=== PATIENT | male | born 1950 | race Hispanic/Latino ===

== ENCOUNTER 2022-12-09 11:10 | Emergency (ER) | payer OTHER ==
[2022-12-09] MEDS ORDERED: NA CHLORIDE 0.9% 1,000 ML ONE ×2 (11:29→13:30)
[2022-12-09 11:36] LABS: Absolute Lymphocytes (CBC) 0.5 K/uL (0.7-4.9); Hematocrit 44.7 % (39.6-49.0); Lymphocytes % 2.1 % (15.3-44.8); MPV 9.1 fL (7.6-11.3); RBC Red Blood Cell Count 4.56 M/uL (4.33-5.43)
[2022-12-09 11:54] LABS: Albumin 2.7 g/dL (3.4-5.0); Protein, Total 7.3 g/dL (6.4-8.2)
[2022-12-09 11:55] LABS: Blood Morphology Comment NOT SEEN (NOT SEEN); Platelet Estimate ADEQ; White Blood Cell Scan OK (OK)
[2022-12-09] MEDS ORDERED: NA CHLORIDE 0.9% 100 ML ONE (12:14)
[2022-12-09] MEDS ORDERED: PIPERACIL/TAZO 3.375 GM VIAL IV ONE (12:14)
[2022-12-09 12:28] LABS: Protime INR 1.13
--- NOTE | 2022-12-09 12:38 | RAD REPORT ---
EXAM DESCRIPTION: CT - Abdomen Pelvis Wo Contrast - 12/09/2022 12:14 pm CLINICAL HISTORY: Abdominal pain. ABD PAIN COMPARISON: Abdomen Pelvis W Contrast dated 12/21/2015 TECHNIQUE: CT imaging of the abdomen and pelvis was performed without contrast. Solid organ, bowel a nd vascular assessment is limited due to lack of IV and oral contrast. All CT scans are performed using dose optimization technique as appropriate and may include automated exposure control or mA/KV adjustment according to patient size. FINDINGS: Mild motion artifact noted.Mild nodular and linear opacities in both lung bases. The liver, spleen, adrenal glands and kidneys are within normal limits for a limited non-contrast exa mination.Cholelithiasis. Subtle inflammation seen surrounding the tail the pancreas could indicate pa ncreatitis. No bowel obstruction, free air, free fluid or abscess. Moderate stool is present throughout the colon . Nonvisualized appendix. Aortoiliac atherosclerosis. Advanced lumbar degenerative changes. IMPRESSION: Prominent cholelithiasis. Subtle inflammation in the fat surrounding the pancreatic tail could indicate pancreatitis. Suggest c orrelation with amylase/lipase levels. Moderate stool is retained throughout the colon. A limited non-contrast examination was performed as detailed.
--- NOTE | 2022-12-09 12:45 | RAD REPORT ---
EXAM DESCRIPTION: US - Liver Only - 12/09/2022 12:30 pm CLINICAL HISTORY: Bilirubinemia COMPARISON: Abdomen Pelvis Wo Contrast dated 12/09/2022; Cholangiogram dated 12/21/2015 TECHNIQUE: Sonographic grayscale and color flow images of the upper abdomen were obtained. FINDINGS: Liver demonstrates homogeneous echotexture and normal echogenicity. Rounded solid appearin g central right liver lobe 1.1 centimeter nodule. There may be regional areas of focal fatty infiltra tion. Hepatopetal flow appreciated in the main portal vein. The liver demonstrates no findings of intrahepatic biliary dilatation. Spleen is normal in size, measuring 9.4 centimeter in long axis. Small dependent echogenic calculi near the neck of the gallbladder. Mildly prominent gallbladder wall , measuring 4 millimeter in thickness. No reported sonographic Simental's sign. The common bile duct is prominent, measuring 1 centimeter in caliber. No evidence of a common duct st one. IMPRESSION: A rounded solid 1.1 centimeter central right liver lobe nodule, not well characterized. This would be best evaluated on dedicated liver mass protocol MRI, which can be performed on an elect medardo basis. Cholelithiasis and prominent common bile duct. Prominent wall of the gallbladder measuring 4 millimet er in thickness. Please correlate clinically for evidence of cholecystitis.
--- NOTE | 2022-12-09 13:08 | EDPHYS ---
Physician Documentation [facility] Name: Stevie Welch Age: 72 yrs Sex: Male : 1950 Arrival Date: 12/09/2022 Time: 11:10 Bed 5 Private MD: ED Physician Enoc Marroquin HPI: 12/09 13:38 This 72 yrs old Male presents to ER via EMS with complaints of Decreased ms3 Appetite. 13:38 72-year-old male with past medical history of CVA, hyperlipidemia, hypertension ms3 presents via report EMS for decreased appetite. Patient endorses daily alcohol use. Patient is unaware how long he has been jaundiced per EMS. Patient denies pain at this time. Patient denies chest pain, shortness of breath, nausea, vomiting. Patient's complaint is he does not feel like eating.. Historical: - Allergies: 11:14 No Known Allergies; ap3 - PMHx: 11:14 CVA; Hyperlipidemia; Hypertension; ap3 - Social history:: Smoking status: unknown Patient uses alcohol. ROS: 13:38 Constitutional: Negative for fever, and chills. Neck: Negative for injury, pain, and ms3 swelling, Cardiovascular: Negative for chest pain, and palpitations. Respiratory: Negative for shortness of breath, cough, wheezing, and pleuritic chest pain. 13:38 Abdomen/GI: Positive for Decreased appetite. 13:38 Skin: Positive for jaundice. 13:38 All other systems are negative. Exam: 13:38 Constitutional: This is a well developed, well nourished patient who is awake, alert, ms3 and in no acute distress. Head/Face: Normocephalic, atraumatic. Chest/axilla: Normal chest wall appearance and motion. Nontender with no deformity. Cardiovascular: Regular rate and rhythm with a normal S1 and S2. No gallops, murmurs, or rubs. Normal PMI, no JVD. No pulse deficits. Respiratory: Lungs have equal breath sounds bilaterally, clear to auscultation and percussion. No rales, rhonchi or wheezes noted. No increased work of breathing, no retractions or nasal flaring. 13:38 Abdomen/GI: Inspection: abdomen appears normal, Bowel sounds: normal, Palpation: moderate abdominal tenderness, in the right upper quadrant. 13:38 Skin: Appearance: Jaundice. 13:43 ECG was reviewed by the Attending Physician. ms3 Vital Signs: 11:12 BP 81 / 62; Pulse 119; Resp 19; Temp 97.7; Pulse Ox 96% on R/A; Weight 71.21 kg; ap3 11:30 BP 89 / 61; Pulse 108; Resp 21 S; Pulse Ox 98% on R/A; kc6 11:33 BP 93 / 59; Pulse 108; Resp 20 S; Pulse Ox 98% on R/A; kc6 11:52 BP 97 / 59; Pulse 107; Resp 20 S; Pulse Ox 99% on R/A; aa5 12:25 BP 96 / 64; Pulse 105; Resp 16 S; Pulse Ox 99% on R/A; aa5 12:33 BP 100 / 69; Pulse 108; Resp 18 S; Pulse Ox 99% on R/A; aa5 12:45 BP 102 / 69; Pulse 108; Resp 18 S; Pulse Ox 99% on R/A; aa5 13:00 BP 100 / 66; Pulse 106; Resp 18 S; Pulse Ox 99% on R/A; aa5 13:15 BP 106 / 68; Pulse 104; Resp 18 S; Temp 98(TE); Pulse Ox 99% on R/A; aa5 13:30 BP 111 / 75; Pulse 104; Resp 16 S; Pulse Ox 99% on R/A; aa5 13:45 BP 104 / 70; Pulse 105; Resp 18 S; Temp 97.5(TE); Pulse Ox 98% on R/A; aa5 14:00 BP 104 / 70; Pulse 105; Resp 16 S; Pulse Ox 100% on R/A; aa5 14:30 BP 109 / 74; Pulse 103; Resp 18 S; Pulse Ox 99% on R/A; aa5 MDM: 11:13 Patient medically screened. snw 13:37 ED course: Patient meets septic shock criteria at this time. A. Cholelithiasis B. ms3 Tachcyardia, WBC >12. C. SBP <90 x2. Lactic acid drawn, blood cultures completed, Zosyn ordered. 30 ml/kg IVF ordered. . ED course: Sepsis re-evaluation complete. 13:38 Differential Diagnosis Cholelithiasis versus dehydration versus acute kidney injury. ms3 Data reviewed: vital signs, nurses notes, lab test result(s), EKG, radiologic studies, and as a result, I will Transfer. Consideration of Admission/Observation Patient transferred. Management of patient was discussed with the following: Programming Engineer: Dr Wilhelm at [facility]. Will need IR for drain. I considered the following discharge prescriptions or medication management in the emergency department Medications were administered in the Emergency Department. See MAR. Independent interpretation of the following test(s) in the Emergency Department EKG: See my EKG interpretation above civil manager: rate is 105 beats/min, Rhythm is sinus tachycardia, with no ectopy, Interpretation: tachycardia. Historians other than the Patient: EMS: [place]. Counseling: I had a detailed discussion with the patient and/or guardian regarding: the historical points, exam findings, and any diagnostic results supporting the discharge/admit diagnosis, lab results, radiology results, the need to transfer to another facility. Response to treatment: the patient's symptoms have mildly improved after treatment, and as a result, I will transfer patient. 13:50 Management of patient was discussed with the following: Discussed case with Dr Hercules at [address] ICU and he accepts patient.. 14:30 ED course: Discussed necessity of transfer with patient's daughter, Yoli. . pr12/09 11:14 Order name: CBC with Diff; Complete Time: 12:[address] [facility] 12/09 11:14 Order name: CMP; Complete Time: 12:[address] [facility] 12/09 11:14 Order name: Lipase; Complete Time: 12:[address] [facility] 12/09 11:39 Order name: CBC Smear Scan; Complete Time: 12:00 EDMO 12/09 12:00 Order name: Blood Culture Adult (2) pr12/09 12:00 Order name: Lactate w/ 2H reflex if indic.; Complete Time: 13:[address] [facility] 12/09 12:00 Order name: Protime (+inr); Complete Time: 12:[address] [facility] 12/09 12:00 Order name: Ptt, Activated; Complete Time: 12:[address] [facility] 12/09 11:59 Order name: Abdomen ; Complete Time: 12:49 EDMO 12/09 12:01 Order name: US Liver Only; Complete Time: 12:[address] [facility] 12/09 12:00 Order name: EKG; Complete Time: 12:[address] [facility] 12/09 11:14 Order name: IV Saline Lock; Complete Time: 11:29 ms3 12/09 11:14 Order name: Labs collected and sent; Complete Time: 11:29 ms3 12/09 12:00 Order name: Cardiac monitoring; Complete Time: 12:03 ms3 12/09 12:00 Order name: EKG - Nurse/Tech; Complete Time: 13:13 ms3 12/09 12:00 Order name: IV Saline Lock - Large Bore; Complete Time: 12:03 ms3 12/09 12:00 Order name: O2 Per Protocol; Complete Time: 12:03 ms3 12/09 12:00 Order name: O2 Sat Monitoring; Complete Time: 12:03 ms3 12/09 12:00 Order name: Vital Signs; Complete Time: 12:02 ms3 EC:43 Rate is 104 beats/min. Rhythm is regular. Left axis deviation noted. IA interval is ms3 normal. Clinical impression: Abnormal EKG without significant change. Interpreted by me. Reviewed by me. Administered Medications: 11:29 Drug: NS 0.9% IV 1000 ml Route: IV; Rate: 1 bolus; Site: right antecubital; kc6 12:30 Follow up: IV Status: Completed infusion; IV Intake: 1000ml aa5 13:24 Drug: NS 0.9% IV 1500 ml Route: IV; Rate: bolus; Site: right forearm; ap3 14:00 Follow up: IV Status: Completed infusion; IV Intake: 500ml aa5 13:39 Drug: Piperacillin-Tazobactam IVPB 3.375 grams Route: IVPB; Infused Over: 60 mins; aa5 Site: right antecubital; 13:57 Follow up: Response: No adverse reaction aa5 14:35 Follow up: Response: No adverse reaction; IV Status: Completed infusion aa5 Disposition Summary: 12/09/22 13:07 Transfer Ordered Transfer Location: [facility] ms3 Reason: Higher level of care ms3 Condition: Stable ms3 Problem: new ms3 Symptoms: are unchanged ms3 Accepting Physician: (12/09/22 14:55) aa5 Diagnosis - Acute cholecystitis ms3 - Choledocholithiasis ms3 Forms: - Medication Reconciliation Form ms3 - SBAR form ms3 Critical care time excluding procedures: 13:42 Critical care time: Bedside Care: 40 minutes, Consultation: 10 minutes. Total time: 50 ms3 minutes Signatures: Dispatcher [employer] EDMS Ashley Luis, HAND FRAME SURGICAL ELASTIC KNITTER-C HAND FRAME SURGICAL ELASTIC KNITTER-Csnw Nathalia Munroe, RN RN aa5 Jeanne Toledo RN RN ap3 Enoc Marroquin DO DO ms3 Olga James, RN RN kc6 Corrections: (The following items were deleted from the chart) 11:59 11:15 Abdomen Pelvis W Con+CT.RAD.BRZ ordered. EDMS EDMS 12:02 12:00 Accucheck ordered. ms3 aa5 14:55 13:07 ms3 aa5
--- NOTE | 2022-12-09 13:08 | ER ---
Nurse's Notes [facility] Name: Stevie Welch Age: 72 yrs Sex: Male : 1950 Arrival Date: 12/09/2022 Time: 11:10 Bed 5 Private MD: Diagnosis: Acute cholecystitis;Choledocholithiasis Presentation: 12/09 11:12 Chief complaint: EMS states: they were called by the home health roofing sales representative for a ap3 patient who was hypotensive, reporting he hasn't eaten in 2 days, hasn't had water but had ETOH yesterday. patient reports having dark urine. Coronavirus screen: At this time, the client does not indicate any symptoms associated with coronavirus-19. Ebola Screen: No symptoms or risks identified at this time. Initial Sepsis Screen: Does the patient meet any 2 criteria? Systolic BP < 90 mmHg. HR > 90 bpm. Does the patient have a suspected source of infection? No. Patient's initial sepsis screen is negative. Risk Assessment: Do you want to hurt yourself or someone else? Patient reports no desire to harm self or others. Onset of symptoms is unknown. 11:12 Method Of Arrival: EMS: [facility] ap3 11:12 Acuity: LENORA 2 ap3 Triage Assessment: 11:14 General: Appears jaundiced . Behavior is calm, cooperative. General: patient reports ap3 being thirsty. Pain: Denies pain. Neuro: Level of Consciousness is awake, alert, obeys commands, Oriented to person, place, time, situation. Cardiovascular: Patient's skin is warm and dry. Respiratory: Airway is patent Respiratory effort is even, unlabored, Respiratory pattern is regular, symmetrical. Derm: Skin is jaundiced. Historical: - Allergies: 11:14 No Known Allergies; ap3 - PMHx: 11:14 CVA; Hyperlipidemia; Hypertension; ap3 - Social history:: Smoking status: unknown Patient uses alcohol. Screenin:16 Abuse screen: Denies threats or abuse. Nutritional screening: jaundiced, reports not ap3 eating for 2 days. Tuberculosis screening: No symptoms or risk factors identified. Assessment: 11:15 General: Appears uncomfortable, Behavior is calm, cooperative. Pain: Denies pain. aa5 Neuro: Level of Consciousness is awake, alert, obeys commands, Oriented to person, place, time, situation, Incoming Freight Clerk are weak bilaterally Moves all extremities. Speech is normal, Facial symmetry appears normal, Reports generalized weakness . Cardiovascular: Heart tones S1 S2 present Rhythm is sinus tachycardia. Respiratory: Airway is patent Respiratory effort is even, unlabored, Respiratory pattern is regular, symmetrical, Breath sounds are clear bilaterally. GI: Abdomen is round Bowel sounds present X 4 quads. Patient currently denies diarrhea, nausea, vomiting. : No signs and/or symptoms were reported regarding the genitourinary system. EENT: Sclera/Cornea jaundiced . Derm: Skin is dry, Skin is jaundiced, Skin temperature is warm. Musculoskeletal: Range of motion: intact in all extremities. 11:39 Reassessment: pts blood pressure is 89/61. pt denies feeling lightheaded or dizzy at kc6 this time. pt placed in Trendelenburg. bp reassessed, 93/59. Dr. Hubbard notified. 12:03 Reassessment: Pt to CT via stretcher . aa5 12:30 Reassessment: Pt back from radiology. aa5 12:30 Neuro: Level of Consciousness is awake, alert, obeys commands, Oriented to person, aa5 place, time, situation. Respiratory: Airway is patent Respiratory effort is even, unlabored, Respiratory pattern is regular, symmetrical. Derm: Skin is dry, Skin is jaundiced, Skin temperature is warm. 12:45 Reassessment: Latanya Welch (pt's daughter) [phone]. aa5 12:50 Reassessment: unable to collect 2nd set of blood cultures, phlebotomy notified. . aa5 13:10 Reassessment: Lab at bedside collecting 2nd set of blood cultures. . aa5 13:10 Neuro: Level of Consciousness is awake, alert, obeys commands, Oriented to person, aa5 place, time, situation. Respiratory: Airway is patent Respiratory effort is even, unlabored, Respiratory pattern is regular, symmetrical. Derm: Skin is dry, Skin is jaundiced, Skin temperature is warm. 14:20 Reassessment: Dr. Hubbard updated pt's daughter, Latanya, about POC [id number]. aa5 14:20 Neuro: Level of Consciousness is awake, alert, obeys commands, Oriented to person, aa5 place, time, situation. Cardiovascular: Rhythm is sinus tachycardia. Respiratory: Airway is patent Respiratory effort is even, unlabored, Respiratory pattern is regular, symmetrical. Derm: Skin is dry, Skin is jaundiced, Skin temperature is warm. 12/10 04:22 Reassessment: Louie with lab resulted patient's + blood culture results: gram negative pf1 rods. Notified [facility] of patient's results to receiving nurse. Vital Signs: 12/09 11:12 BP 81 / 62; Pulse 119; Resp 19; Temp 97.7; Pulse Ox 96% on R/A; Weight 71.21 kg; ap3 11:30 BP 89 / 61; Pulse 108; Resp 21 S; Pulse Ox 98% on R/A; kc6 11:33 BP 93 / 59; Pulse 108; Resp 20 S; Pulse Ox 98% on R/A; kc6 11:52 BP 97 / 59; Pulse 107; Resp 20 S; Pulse Ox 99% on R/A; aa5 12:25 BP 96 / 64; Pulse 105; Resp 16 S; Pulse Ox 99% on R/A; aa5 12:33 BP 100 / 69; Pulse 108; Resp 18 S; Pulse Ox 99% on R/A; aa5 12:45 BP 102 / 69; Pulse 108; Resp 18 S; Pulse Ox 99% on R/A; aa5 13:00 BP 100 / 66; Pulse 106; Resp 18 S; Pulse Ox 99% on R/A; aa5 13:15 BP 106 / 68; Pulse 104; Resp 18 S; Temp 98(TE); Pulse Ox 99% on R/A; aa5 13:30 BP 111 / 75; Pulse 104; Resp 16 S; Pulse Ox 99% on R/A; aa5 13:45 BP 104 / 70; Pulse 105; Resp 18 S; Temp 97.5(TE); Pulse Ox 98% on R/A; aa5 14:00 BP 104 / 70; Pulse 105; Resp 16 S; Pulse Ox 100% on R/A; aa5 14:30 BP 109 / 74; Pulse 103; Resp 18 S; Pulse Ox 99% on R/A; aa5 ED Course: 11:12 Patient arrived in ED. ap3 11:14 Triage completed. ap3 11:14 Enoc Hubbard DO is Attending Physician. ms3 11:16 Arm band placed on right wrist. ap3 11:16 Patient has correct armband on for positive identification. Placed in gown. Bed in low ap3 position. Call light in reach. Side rails up X2. quality assurance monitor body on. Pulse ox on. NIBP on. 11:29 Inserted saline lock: 20 gauge in right antecubital area, using aseptic technique. kc6 Blood collected. 11:56 Nathalia Munroe, RN is Primary Nurse. aa5 12:16 Abdomen In Process Unspecified. EDMS 12:32 US Liver Only In Process Unspecified. EDMS 12:35 First set of blood cultures drawn by me. aa5 12:39 Inserted saline lock: 18 gauge in left antecubital area, using aseptic technique. aa5 12:50 Inserted saline lock: 22 gauge in left wrist, using aseptic technique. aa5 13:41 [id number] called spoke with transfer center ,transfer center called back \[id number] [place] consult,then Dr. Hubbard spoke with .stated he would call back. 13:59 joselito from [facility] icu ,called spoke with dr hubbard. kj1 14:01 called transfer and spoke with edel about back and fourth approval from ,she kj1 stated she would call domestic housekeeper and call me back. 14:40 No provider procedures requiring assistance completed. Patient transferred, IV remains aa5 in place. Administered Medications: 11:29 Drug: NS 0.9% IV 1000 ml Route: IV; Rate: 1 bolus; Site: right antecubital; kc6 12:30 Follow up: IV Status: Completed infusion; IV Intake: 1000ml aa5 13:24 Drug: NS 0.9% IV 1500 ml Route: IV; Rate: bolus; Site: right forearm; ap3 14:00 Follow up: IV Status: Completed infusion; IV Intake: 500ml aa5 13:39 Drug: Piperacillin-Tazobactam IVPB 3.375 grams Route: IVPB; Infused Over: 60 mins; aa5 Site: right antecubital; 13:57 Follow up: Response: No adverse reaction aa5 14:35 Follow up: Response: No adverse reaction; IV Status: Completed infusion aa5 Medication: 14:40 VIS not applicable for this client. aa5 Intake: 12:30 IV: 1000ml; Total: 1000ml. aa5 14:00 IV: 500ml; Total: 1500ml. aa5 Outcome: 13:07 ER care complete, transfer ordered by ms3 14:40 Transferred by ground EMS Transfer form completed. X-rays sent w/ patient. Note: to aa5 [facility] ICU, report given to Mayte (ICU nurse), report given to [facility]. 14:40 Condition: stable aa5 14:40 Instructed on the need for transfer, Demonstrated understanding of instructions. 14:55 Patient left the ED. aa5 Signatures: Dispatcher [employer] EDMS Nathalia Munroe, RN RN aa5 Jeanne Toledo, RN RN ap3 Jinny Craig kj1 Enoc Hubbard, DO ms3 Olga James, RN RN kc6 Ifrah Dye, RN RN pf1
[2022-12-09] MEDS ORDERED: NA CHLORIDE 0.9% 500 ML ONE (13:30)
[2022-12-09 16:08] VITALS: TEMP 97.7
[2022-12-09 16:12] VITALS: O2SAT 99
[2022-12-09 16:19] VITALS: BP 109/74
--- NOTE | 2022-12-09 20:18 | EKG ---
Test Date: 2022-12-09 Test Time: 13:11:42 Director Trade: CHAS MEASUREMENT RESULTS: Intervals: Rate: 104 CO: 156 QRSD: 140 QT: 398 QTc: 523 Kirwin: P: 45 CO: 156 QRS: -76 T: 30 INTERPRETIVE STATEMENTS: Sinus tachycardia Left axis deviation Right bundle branch block Abnormal ECG Compared to ECG 02/27/2017 06:57:41 Left-axis deviation now present Right bundle-branch block now present Sinus rhythm no longer present Electronically Signed On 12-09-22 20:18:17 CDT by Rufino Sparks
== END 2022-12-09 14:55 | disposition short-term general hospital (02) ==
LOC: ER 11:10
DX: K80.42 Calculus of bile duct with acute cholecystitis without obstruction (principal); I10 Essential (primary) hypertension; Z86.73 Personal history of transient ischemic attack (TIA), and cerebral infarction without residual deficits
CPT/HCPCS: 96365; 96361; 93005; 87040 ×2; 85025; 36415; 87205 ×3; 85610; 83605; 85730; 83690; 80053; 74176; 76705; 99285; J2543; J7040; J7030 ×2